=== PATIENT | female | born 1960 | race Caucasian/White ===

== ENCOUNTER 2016-11-08 08:02 | Emergency (ER) | payer BC, OTHER ==
[~2016-11-08] VITALS: Ht 160 cm; Wt 65.0 kg
[2016-11-08 08:06] VITALS: Ht 160 cm; Wt 65.0 kg
[2016-11-08] MEDS ORDERED: KETOROLAC 30 MG INJ IM STA (08:31)
[2016-11-08] MEDS ORDERED: ONDANSETRON (ODT) 4 MG TAB ODT STA (08:31)
[2016-11-08] MEDS ORDERED: DEXAMETHASONE 10 MG/ML 1 ML INJ IM ONE (09:00)
[2016-11-08] MEDS ORDERED: HYDROCODONE/APAP (5/325) TAB PO ONE (09:00)
--- NOTE | 2016-11-08 10:04 | RADRPT ---
AMENDMENT: 11/08/2016 10:57:31 AM Eliceo Goel M.d Please disregard this report. Technologist indicates that this is the incorrect patient. PROCEDURE: XR Lumbar Spine. CLINICAL INDICATION: Low back pain. TECHNIQUE: AP, lateral, and lateral lumbosacral junction views of the lumbar spine are available f or review COMPARISON: None available FINDINGS: The normal lumbar lordosis is preserved. No acute fracture or compression is seen. The vertebral bod y heights are all normal. Intervertebral discs are normal in height. There is mild degenerative spon dylosis seen throughout the lumbar spine.. Paraspinous soft tissues are grossly unremarkable. IMPRESSION: 1. Mild degenerative spondylosis. 2. No acute fracture or compression. RPTAT: QQ .Eliceo Goel MD, Date Time Electronically viewed and signed by .Eliceo Goel MD, on 11/08/2016 10:57 .L/
[2016-11-08] MEDS ORDERED: NAPR-260 PO (10:11)
[2016-11-08] MEDS ORDERED: HYDR-906 PO (10:11)
--- NOTE | 2016-11-08 10:57 | RADRPT ---
PROCEDURE: XR Lumbar Spine. CLINICAL INDICATION: Low back pain. TECHNIQUE: AP, lateral, and lateral lumbosacral junction views of the lumbar spine are available f or review COMPARISON: None available FINDINGS: There is mild levoscoliosis of the lumbar spine.. No acute fracture or compression is seen. The vert ebral body heights are all normal. Intervertebral discs are normal in height. Degenerative spondylos is of the lumbar spine is present. . Paraspinous soft tissues are grossly unremarkable. Diffuse oste openia is present. Calcific atherosclerosis of the aorta is present. IMPRESSION: 1. Osteopenia. 2. Mild levoscoliosis with degenerative spondylosis of the lumbar spine. 3. No acute fracture or compression. RPTAT: QQ .Eliceo Goel MD, Date Time Electronically viewed and signed by .Eliceo Goel MD, on 11/08/2016 10:57 .L/
[2016-11-08 11:16] VITALS: BP 124/78; PULSE 77; RESP 18; TEMP 97.8
--- NOTE | 2016-11-08 14:53 | ERD ---
ER Documentation Chief Complaint Date/Time DATE: 11/08/16 TIME: 14:50 Chief Complaint chronic back pain , worse x 3 weeks HPI This patient is a 56-year-old female with history of chronic back pain presenting with her daughter who is assisting with translation with complaints of exacerbation of chronic low back pain. Symptoms are exacerbated with walking and movement. Marion alleviates the pain. Flareup of her chronic problem has been ongoing for the past 20 days. Symptoms are worse on the right side of the low back. No loss of bowel or bladder function, numbness or tingling in the legs. Or other symptoms reported. ROS All systems reviewed and are negative except as per history of present illness. Medications Home Meds Active Scripts Naproxen* (Naprosyn*) 500 Mg Tablet, 500 MG PO BID Y for PAIN AND/OR INFLAMMATION, #30 TAB Prov:REBA ADDISON PA-C 11/08/16 Hydrocodone/Acetaminophen ([place] 5-325 Tablet) 1 Each Tablet, 1 TAB PO Q6H Y for PAIN, #15 TAB Prov:REBA ADDISON PA-C 11/08/16 Allergies Allergies: Coded Allergies: No Known Drug Allergy (Verified Allergy, Unknown, 11/08/16) PMhx/Soc Hx Miscellaneous Medical Probl: Yes (Scoliosis, Arthritis) Hx Alcohol Use: No Hx Substance Use: No Hx Tobacco Use: No Smoking Status: Never smoker Physical Exam Vitals Vital Signs Date Time Temp Pulse Resp B/P Pulse Ox O2 Delivery O2 Flow Rate FiO2 11/08/16 11:16 97.8 77 18 124/78 98 Room Air 11/08/16 08:06 97.8 98 16 138/87 98 Physical Exam Const: Nontoxic, well-appearing female in no acute distress. Head: Atraumatic Eyes: Normal Conjunctiva ENT: Normal External Ears, Nose and Mouth. Neck: Full range of motion..~ No meningismus. Resp: Clear to auscultation bilaterally Cardio: Regular rate and rhythm, no murmurs Abd: Soft, non tender, non distended. Normal bowel sounds Skin: No petechiae or rashes Back: No midline or flank tenderness. Positive straight leg raise test bilaterally. Ext: No cyanosis, or edema Neur: Awake and alert Psych: Normal Mood and Affect Results 24 hrs Current Medications Medications (Trade) Dose Ordered Sig/Shivani Route PRN Reason Start Time Stop Time Status Last Admin Dose Admin Dexamethasone (Decadron) 10 mg ONCE ONCE IM 11/08/16 09:00 11/08/16 09:01 DC 11/08/16 08:41 Ketorolac Tromethamine (Toradol) 30 mg ONCE STAT IM 11/08/16 08:31 11/08/16 08:34 DC 11/08/16 08:41 Acetaminophen/ Hydrocodone Bitart ([place] (5/325)) 1 tab ONCE ONCE PO 11/08/16 09:00 11/08/16 09:01 DC 11/08/16 08:41 Ondansetron HCl (Zofran Odt) 4 mg ONCE STAT ODT 11/08/16 08:31 11/08/16 08:34 DC 11/08/16 08:41 [place] [id number] Radiology Main Line: [phone] DIAGNOSTIC IMAGING REPORT Patient: DANI TOMAS : 1960 Age: 56 Sex: F MR #: [id number] DOS: 11/08/16 0000 Ordering MD: GEOFF GRADY MD Location: [facility] Room/Bed: PROCEDURE: XR Lumbar Spine. CLINICAL INDICATION: Low back pain. TECHNIQUE: AP, lateral, and lateral lumbosacral junction views of the lumbar spine are available for review COMPARISON: None available FINDINGS: There is mild levoscoliosis of the lumbar spine.. No acute fracture or compression is seen. The vertebral body heights are all normal. Intervertebral discs are normal in height. Degenerative spondylosis of the lumbar spine is present. . Paraspinous soft tissues are grossly unremarkable. Diffuse osteopenia is present. Calcific atherosclerosis of the aorta is present. IMPRESSION: 1. Osteopenia. 2. Mild levoscoliosis with degenerative spondylosis of the lumbar spine. 3. No acute fracture or compression. RPTAT: QQ .Eliceo Goel MD, MD Date Time Electronically viewed and signed by .Eliceo Goel MD, MD on 11/08/2016 10:57 .L/ CC: GEOFF GRADY MD Procedures/MDM 56-year-old female presenting to the emergency department with acute on chronic low back pain. On physical examination there is positive straight leg raise bilaterally which is concerning for low back pain with sciatic nerve involvement. Patient was medicated in the department with IM Toradol, IM Decadron, and p.o. Marion and p.o. Zofran. The patient is feeling improved on reevaluation. X-ray was negative for acute fracture or compression and was interpreted by the radiologist. I have low suspicion for cauda equina, epidural abscess, nerve root compression, or other emergent conditions. The patient is stable for outpatient management with recommendation to follow-up with pain management doctor. Close follow-up with primary care physician advised. Strict ER return precautions were discussed. Departure Diagnosis: Primary Impression: Back pain Condition: Fair Patient Instructions: Back Pain W/ Sciatica Referrals: OPAL LEONG MD (PCP) KARMA SMITH Additional Instructions: No mas mejor en 2-3 sánchez, regresar. Mas peor en 24 horas, regresear rapidamente. Ir a doctor primario in 5-7 sánchez. Usar instrucciones cuando kong medicamento. REBA ADDISON PA-C Nov 08, 2016 14:53
== END 2016-11-08 11:10 | disposition home or self-care (01) ==
LOC: FTE 08:02
DX: M54.5 Low back pain (principal)
CPT/HCPCS: 72100; J1100; J1885; 96372

== ENCOUNTER 2016-11-11 15:21 | Emergency (ER) | payer OTHER ==
[~2016-11-11] VITALS: Ht 162.6 cm; Wt 89.0 kg
[~2016-11-11 15:21] MED LIST: HYDR-906 PO; NAPR-260 PO
[2016-11-11 15:26] VITALS: Ht 162.6 cm; Wt 89.0 kg
[2016-11-11] MEDS ORDERED: KETOROLAC 30 MG INJ IM STA (16:06)
[2016-11-11] MEDS ORDERED: ONDANSETRON 4 MG INJ IV STA (16:06)
--- NOTE | 2016-11-11 16:19 | ERD ---
ER Documentation Chief Complaint Date/Time DATE: 11/11/16 TIME: 16:17 Chief Complaint BACK PAIN, ON NORCO TOOK 1-2 TAB, PER PT LAST VOIDED LAS NIGHT, CONSTIPAT HPI 56-year-old female with a history of chronic low back pain presents with her daughter who is assisting with translation for complaints of continued pain as well as new onset constipation, urinary retention and "numbness around the rectum and groin." Patient also notes intermittent lower extremity tingling which is exacerbated with movement or bending forward. She states her last bowel movement was 5 days ago and has since been unable to pass stool. She also states that for the past 24 hours she has felt urgency to urinate but has not been able to pass urine. She notes associated abdominal distention and midline lower abdominal pain. This patient was seen and evaluated on 08 of November. At that time an x-ray was performed revealing evidence of osteopenia and degenerative disc disease although no evidence of acute fracture or compression. Pain was well controlled with Toradol and IM steroids and patient was discharged home. At that time patient did not report symptoms of numbness, tingling, or bowel or bladder dysfunction but was given strict return precautions. Patient was recommended to follow-up with customer operations specialist and states she has an appointment scheduled in 3 days. She denies fever, vomiting, or diarrhea. ROS All systems reviewed and are negative except as per history of present illness. Medications Home Meds Active Scripts Naproxen* (Naprosyn*) 500 Mg Tablet, 500 MG PO BID Y for PAIN AND/OR INFLAMMATION, #30 TAB Prov:REBA ADDISON PA-C 11/08/16 Hydrocodone/Acetaminophen ([place] 5-325 Tablet) 1 Each Tablet, 1 TAB PO Q6H Y for PAIN, #15 TAB Prov:REBA ADDISON PA-C 11/08/16 Allergies Allergies: Coded Allergies: No Known Drug Allergy (Verified Allergy, Unknown, 11/08/16) PMhx/Soc Hx Miscellaneous Medical Probl: Yes (Scoliosis, Arthritis) Hx Alcohol Use: No Hx Substance Use: No Hx Tobacco Use: No Physical Exam Vitals Vital Signs Date Time Temp Pulse Resp B/P Pulse Ox O2 Delivery O2 Flow Rate FiO2 11/11/16 15:26 98.1 99 20 137/94 99 Physical Exam Const: Well-developed, well-nourished, in mild distress Head: Atraumatic Eyes: Normal Conjunctiva ENT: Normal External Ears, Nose and Mouth. Neck: Full range of motion at cervical spine.~ No meningismus. Resp: Clear to auscultation bilaterally Cardio: Regular rate and rhythm, no murmurs Abd: Soft, non tender, non distended. Normal bowel sounds Skin: No petechiae or rashes Back: No midline or flank tenderness Ext: Positive straight leg test bilaterally. Full range of motion at hip, knee and ankle joints. Patient able to bear weight and ambulate however reports discomfort. 5/5 strength against resistance bilaterally at knee and ankle joints. No cyanosis, or edema Neur: Rectal tone intact. Distal lower extremity intact to light touch. Pedal pulses 2+. Awake and alert Psych: Normal Mood and Affect : Stool palpable upon rectal exam. Patient able to exhibit rectal tone. Result Diagram: 11/11/16 1625 11/11/16 1625 Results 24 hrs Laboratory Tests Test 11/11/16 16:25 11/11/16 16:30 White Blood Count 10.410^3/ul Red Blood Count 5.0510^6/ul Hemoglobin 14.9g/dl Hematocrit 43.9% Mean Corpuscular Volume 86.9fl Mean Corpuscular Hemoglobin 29.5pg Mean Corpuscular Hemoglobin Concent 33.9g/dl Red Cell Distribution Width 12.2% Platelet Count 28870^3/UL Mean Platelet Volume 10.8fl Neutrophils % 67.4% Lymphocytes % 22.5% Monocytes % 6.2% Eosinophils % 3.0% Basophils % 0.6% Nucleated Red Blood Cells % 0.0/100WBC Neutrophils # 7.010^3/ul Lymphocytes # 2.310^3/ul Monocytes # 0.710^3/ul Eosinophils # 0.310^3/ul Basophils # 0.110^3/ul Nucleated Red Blood Cells # 0.010^3/ul Sodium Level 141mmol/L Potassium Level 4.8mmol/L Chloride Level 99mmol/L Carbon Dioxide Level 31mmol/L Anion Gap 16 Blood Urea Nitrogen 14mg/dl Creatinine 0.59mg/dl Glucose Level 110mg/dl Calcium Level 10.6mg/dl Total Bilirubin 0.4mg/dl Direct Bilirubin 0.00mg/dl Indirect Bilirubin 0.4mg/dl Aspartate Amino Transf (AST/SGOT) 29IU/L Alanine Aminotransferase (ALT/SGPT) 47IU/L Alkaline Phosphatase 74IU/L Total Protein 8.3g/dl Albumin 5.2g/dl Globulin 3.10g/dl Albumin/Globulin Ratio 1.67 Urine Color LT. YELLOW Urine Clarity CLEAR Urine pH 6.0 Urine Specific [place] <=1.005 Urine Ketones NEGATIVE Urine Nitrite NEGATIVE Urine Bilirubin NEGATIVE Urine Urobilinogen 0.2 E.U./dL Urine Leukocyte Esterase NEGATIVE Urine Microscopic RBC 0-2/HPF Urine Microscopic WBC 0-2/HPF Urine Squamous Epithelial Cells RARE Urine Hemoglobin TRACE Urine Glucose NEGATIVE% Urine Total Protein NEGATIVE Current Medications Medications (Trade) Dose Ordered Sig/Shivani Route PRN Reason Start Time Stop Time Status Last Admin Dose Admin Bisacodyl 10 mg 10 mg ONCE ONCE WI 11/11/16 16:30 11/11/16 16:37 DC 11/11/16 16:34 Sodium Chloride (NS) 1,000 ml @ 1,000 mls/hr Q1H ONCE IV 11/11/16 16:30 11/11/16 17:29 DC 11/11/16 16:34 Ketorolac Tromethamine (Toradol) 30 mg ONCE STAT IM 11/11/16 16:06 11/11/16 16:38 DC Ondansetron HCl (Zofran Inj) 4 mg ONCE STAT IV 11/11/16 16:06 11/11/16 16:11 DC 11/11/16 16:34 Ketorolac Tromethamine (Toradol) 30 mg ONCE STAT IV 11/11/16 16:37 11/11/16 16:38 DC 11/11/16 16:39 Procedures/MDM 56-year-old patient returns to the emergency department for ongoing low back pain with new onset complaints of numbness near rectum and pelvic region, constipation, and urinary retention as well as intermittent lower extremity tingling. Patient exhibits good lower extremity strength, is able to bear full weight, ambulate, and is neurovascularly intact. Rectal exam performed. Stool palpable. Rectal tone intact. I administered a rectal suppository. MRI of the lumbar spine was ordered to rule out cauda equina or major spinal nerve compression. Patient completed MRI screening documentation. CBC showed no evidence of systemic infection or severe anemia. CMP showed no evidence of electrolyte abnormalities, severe acidosis, alkalosis , renal failure, or liver disease. UA showed no evidence of acute infection or hematuria. She received a bolus of fluid as well as Toradol while in the emergency department and reports improvement of pain symptoms. Patient case transferred to [facility], pending MRI results. Departure Diagnosis: Primary Impression: Back pain Back pain location: low back pain Chronicity: acute Back pain laterality: right Sciatica presence: unspecified whether sciatica present Qualified Code : M54.5 - Acute right-sided low back pain, with sciatica presence unspecified Additional Impressions: Saddle anesthesia Tingling in extremities Abdominal distension Abdominal pain Abdominal location: lower abdomen, unspecified Qualified Code: R10.30 - Lower abdominal pain FITO NAGY PA-C Nov 11, 2016 16:19
[2016-11-11 16:28] LABS: ADD SCAN DIFF NO
[2016-11-11] MEDS ORDERED: SOD CHLORIDE 0.9% 1,000 ML IV ONE (16:30)
[2016-11-11] MEDS ORDERED: BISACODYL 10 MG SUPP PR ONE (16:30)
[2016-11-11 16:31] LABS: BASOPHIL # 0.1 10^3/ul (0.0-0.1); BASOPHILS % 0.6 % (0.0-2.0); EOSINOPHILS # 0.3 10^3/ul (0.0-0.5); HEMATOCRIT 43.9 % (37.0-47.0); HEMOGLOBIN 14.9 g/dl (12.0-16.0); LYMPHOCYTES # 2.3 10^3/ul (0.8-2.9); LYMPHOCYTES % 22.5 % (15.0-51.0); MEAN CORPUSCULAR HEMOGLOBIN 29.5 pg (29.0-33.0); MEAN CORPUSCULAR HGB CONC 33.9 g/dl (32.0-37.0); MEAN CORPUSCULAR VOLUME 86.9 fl (82.0-101.0); MEAN PLATELET VOLUME 10.8 fl (7.4-10.4); MONOCYTE # 0.7 10^3/ul (0.3-0.9); MONOCYTES % 6.2 % (0.0-11.0); NEUTROPHILS % 67.4 % (39.0-77.0); PLATELET COUNT 321 10^3/UL (140-415); RED BLOOD COUNT 5.05 10^6/ul (4.20-5.40); RED CELL DISTRIBUTION WIDTH 12.2 % (11.5-14.5); WHITE BLOOD COUNT 10.4 10^3/ul (4.8-10.8)
[2016-11-11] MEDS ORDERED: KETOROLAC 30 MG INJ IV STA (16:37)
[2016-11-11 17:10] LABS: ALBUMIN 5.2 g/dl (3.3-4.9); ALBUMIN/GLOBULIN RATIO 1.67; BILIRUBIN,INDIRECT 0.4 mg/dl (0-1.1); BILIRUBIN,TOTAL 0.4 mg/dl (0.2-1.3); CALCIUM 10.6 mg/dl (8.4-10.2); CREATININE 0.59 mg/dl (0.44-1.00); POTASSIUM 4.8 mmol/L (3.5-5.1); TOTAL PROTEIN 8.3 g/dl (6.1-8.1)
[2016-11-11 17:27] LABS: ADD UMIC YES; UR BILIRUBIN (Dip) NEGATIVE (NEGATIVE); UR BLOOD (Dip) TRACE (NEGATIVE); UR CLARITY CLEAR (CLEAR); UR COLOR LT. YELLOW (YELLOW); UR GLUCOSE (Dip) NEGATIVE (NEGATIVE); UR KETONES (Dip) NEGATIVE (NEGATIVE); UR LEUKOCYTE ESTERASE (Dip) NEGATIVE (NEGATIVE); UR NITRITE (Dip) NEGATIVE (NEGATIVE); UR TOTAL PROTEIN (Dip) NEGATIVE (NEGATIVE); UR UROBILINOGEN (Dip) 0.2 E.U./dL (0.1-1.0)
[2016-11-11 18:01] LABS: UR SQUAMOUS EPITHELIAL CELL RARE; URINE RBCS 0-2 /HPF (0)
--- NOTE | 2016-11-11 18:34 | RADRPT ---
PROCEDURE: MR Lumbar Spine without contrast. CLINICAL INDICATION: Saddle anesthesia. Urinary retention. TECHNIQUE: Multiplanar multisequence MRI of the lumbar spine was performed. COMPARISON: No similar studies are submitted for comparison. FINDINGS: There is a normal lumbar lordosis. The vertebral body heights are maintained. There is no destructive osseous lesion. There is no abnormal bone marrow edema. There are Modic type II degenerative changes at L4-5 and L5- S1. There is disk desiccation from T12-L1 to L5-S1. The conus medullaris is at the T12 level. The cauda equina is unremarkable. T12-L1 : There is moderate to severe disk space narrowing. There is 1 mm retrolisthesis with a 3 mm broad-based disk osteophyte complex and mild bilateral facet arthropathy without spinal canal steno sis. There is moderate to severe bilateral foraminal stenosis impinging the exiting bilateral T12 n erve roots. L1-L2 : There is a 2 mm broad-based disk bulge with mild bilateral facet arthropathy without spinal canal stenosis. There is mild to moderate left with moderate right foraminal stenosis. L2-L3 : There is a 2 mm broad-based disk bulge and 1 mm central disk protrusion with mild bilateral facet arthropathy without spinal canal stenosis. There is mild to moderate bilateral foraminal sten osis. L3-L4 : There is mild to moderate disk space narrowing. There is 5 mm of grade 1 anterolisthesis wi th a broad-based pseudo disk bulge with severe bilateral facet arthropathy and ligamentum flavum inf olding causing severe spinal canal stenosis. There is severe right with mild left foraminal stenosi s impinging the exiting right L3 nerve root. L4-L5 : There is moderate to severe disk space narrowing. There is a 3 mm broad-based disk osteophy te complex with severe bilateral facet arthropathy effacing the left lateral recess with moderate sp inal canal stenosis. There is mild to moderate right with mild left foraminal stenosis. L5-S1 : There is severe disk space narrowing. There is a 2 mm circumferential disk osteophyte compl ex with severe left and mild right facet arthropathy with mild spinal canal stenosis. There is mode rate left without right foraminal stenosis. The paraspinal musculature are within normal limits. IMPRESSION: 1. Multilevel degenerative changes most pronounced at L3-L4 where there is grade 1 anterolisthesis with a broad-based pseudo disk bulge with severe spinal canal stenosis. There is severe right bart inal stenosis impinging the exiting right L3 nerve root. 2. No acute compression fracture or abnormal bone marrow edema. Further findings as detailed above. RPTAT: PP .Villa Ray MD, Date Time Electronically viewed and signed by .Villa Ray MD, on 11/11/2016 18:33 .F/
[2016-11-11] MEDS ORDERED: DOCU-144 PO (19:14)
[2016-11-11] MEDS ORDERED: morphine 10 MG INJ IM ONE (19:30)
--- NOTE | 2016-11-11 23:13 | EN ---
Date/Time of Note Date/Time of Note DATE: 11/11/16 TIME: 23:11 ER Progress Note This patient's care was turned over to me by my colleague, MANOLO Partida. I shared the patient's MRI results which show no suspicion for cauda equina. I discussed this case with supervising physician, Dr. Justice, who recommended discharge to home with close outpatient follow-up with a neurosurgeon. Information for a neurosurgeon was given to the patient on discharge. She was given a prescription for Colace for acute constipation, most likely secondary to opioid use for her back pain. The patient and her daughter understood the discharge plan of diagnosis. All questions and concerns were addressed. Close follow-up with neurosurgeon and primary care physician advised. Strict ER return precautions were discussed. REBA ADDISON PA-C Nov 11, 2016 23:13
== END 2016-11-11 19:54 | disposition home or self-care (01) ==
LOC: FTE 15:21
DX: M54.5 Low back pain (principal); R20.2 Paresthesia of skin; R14.0 Abdominal distension (gaseous); R10.30 Lower abdominal pain, unspecified; R20.0 Anesthesia of skin
CPT/HCPCS: 72148; 80053; 81001; 85025; J1885; J2270; J2405; J7030; 96372; 96374; 96375